=== PATIENT | male | born 1980 | race Hispanic/Latino ===

== ENCOUNTER 2022-08-31 12:39 | Emergency (ER) | payer OTHER ==
[2022-08-31] VITALS (7 sets, daily range): BP systolic 118–130; BP diastolic 76–85
[~2022-08-31] VITALS: Ht 160 cm; Wt 70.2 kg
[2022-08-31 13:13] LABS: BASO% 0.6 % (0-3); EOS% 1.8 % (0-8); HEMOGLOBIN 15.1 g/dl (14.0-18.0); IMMATURE GRANULOCYTES 0.4 % (0.0-5.0); LYMPH% 32.7 % (15-41); MEAN CELL VOLUME 92.8 fL CALC (80.0-100.0); MEAN CORPUSCULAR HGB 31.9 pG CALC (26.0-32.0); MEAN CORPUSCULAR HGB CONC 34.3 g/dL CAL (32.0-36.0); MONO% 7.2 % (2-13); NEUT# 4.71 thou/uL (1.82-7.42); NEUT% 57.3 % (42-76); RED BLOOD COUNT 4.74 mill/uL (4.70-6.10); RED CELL DISTRI WIDTH 12.4 % (11.5-15.5)
[2022-08-31 13:25] LABS: ALBUMIN 4.8 g/dL (3.2-5.0); ALKALINE PHOSPHATASE 79 u/l (38-126); ANION GAP 13 (6-22 (CALC)); BILIRUBIN, TOTAL 0.7 mg/dL (0.2-1.3); BUN 18 mg/dL (9-20); BUN/CREATININE RATIO 17 (12-20 (CALC)); CARBON DIOXIDE 24 mmol/l (22-30); CHLORIDE 104 mmol/l (95-108); CREATININE 1.1 mg/dL (0.7-1.3); GFR FOR AFR.AMER. > 60 ML/MIN (>=60 (CALC)); GFR OTHER RACES > 60 ML/MIN (>=60 (CALC)); POTASSIUM 3.6 mmol/l (3.5-5.1); SGOT/AST 51 u/l (17-59); SODIUM 138 mmol/l (137-146); TOTAL PROTEIN 8.1 g/dL (6.3-8.2)
[2022-08-31] MEDS ORDERED: CEPHALEXIN500 MG PO (15:11)
== END 2022-08-31 15:35 | disposition home or self-care (01) | DRG 605 ==
LOC: ED 12:39
PROVIDERS: Family Medicine
PROC: 0HQ3XZZ Repair Left Ear Skin, External Approach (ICD-10-PCS; principal; 2022-08-31)
PROC: 0HQ1XZZ Repair Face Skin, External Approach (ICD-10-PCS; 2022-08-31)
DX: S01.81XA Laceration without foreign body of other part of head, initial encounter (principal); S01.312A Laceration without foreign body of left ear, initial encounter; S06.0X0A Concussion without loss of consciousness, initial encounter; M25.561 Pain in right knee; W13.2XXA Fall from, out of or through roof, initial encounter; Y93.H3 Activity, building and construction; Y99.0 Civilian activity done for income or pay